=== PATIENT | female | born 1955 | race African-American/Black ===

== ENCOUNTER 2021-06-09 14:23 | Emergency (ER) | payer MEDICARE, SELFPAY ==
--- NOTE | ~2021-06-09 | XR_ITS ---
EXAMINATION: XR chest 2V 06/09/2021 15:41 INDICATION: Congestion and cough. Pneumonia. PROCEDURE: 2 view chest COMPARISON: 09/12/2018 FINDINGS: The lungs are clear. The cardiomediastinal silhouette is within normal limits. There are no pleural effusions. There is no pneumothorax suspected. IMPRESSION: 1: NO ACUTE CARDIOPULMONARY DISEASE. Reviewed, dictated and finalized at location A. PRACTITIONER
--- NOTE | 2021-06-09 14:27 | ED.URI ---
HPI - URI/Sore Throat General Chief Complaint: Upper Respiratory Infection Stated Complaint: cogh/sore throat/uri Time Seen by Provider: 06/09/21 14:26 Source: patient Mode of arrival: ambulatory Limitations: no limitations History of Present Illness HPI Narrative: Ms. Lugo is a 66-year-old female patient presenting to the clinic today with complaints of cough, sore throat, losing voice, fever, and shortness of breath x 3 days. She reports no known Covid exposure. Fever was as high as 101.1F. SPO2 is 98% on room air. Reports shortness of breath with exertion and laying down. She is able to speak in full sentences. Reports coughing is worse when she is lying down. She denies being smoker. Has a productive cough with green phlegm. MD elicited complaint: cough, sore throat and nasal congestion Related Data Home Medications Medication Instructions Recorded Confirmed amlodipine 10 mg DIRECTED 06/09/21 06/09/21 atorvastatin 40 mg DIRECTED 06/09/21 06/09/21 levothyroxine 75 mcg DIRECTED 06/09/21 06/09/21 losartan-hydrochlorothiazide 1 tablet DIRECTED 06/09/21 06/09/21 metformin 500 mg PO DIRECTED 06/09/21 06/09/21 metoprolol succinate 100 mg PO DIRECTED 06/09/21 06/09/21 Allergies Allergy/AdvReac Type Severity Reaction Status Date / Time lisinopril Allergy Unknown SWELLING Verified 12/20/17 07:53 Review of Systems Review of Systems: Pertinent positives per HPI. Patient denies any chills, rash, headache, visual changes, dizziness, chest pain, palpitations, nausea, vomiting, diarrhea, constipation, abdominal pain, or any urinary issues. PMFSH Comments At the time of my signature, I reviewed and agree with the nursing past medical, surgical, social, and family history. There is no relevant family history pertinent to the patient complaint. Exam Narrative: General: Well-developed, well nourished, in no apparent distress Head: Normocephalic, atraumatic Eyes: Pupils equally round and reactive to light bilaterally, EOM intact, sclera and conjunctive clear, no discharge, lids normal Ears: TMs intact and clear, ear canals clear, no drainage, grossly hearing normal. Nose: Nares patent, clear nasal discharge, mild inflammation to left anterior and posterior turbinates, no sinus tenderness. Mouth: Oral pharynx without lesions or masses, good dentition, MMM. Postnasal drip Neck: Supple, trachea midline, no enlargement of anterior or posterior cervical nodes, no thyroid masses or goiter palpable. Cardio: Regular rate and rhythm, s1 and s2 normal, no murmur appreciated. Resp: Lung sounds diminished, no rhonchi, rales, wheezing or rubs. Active wet cough Course Course Emergency Course: Portions of this record may have been created with voice recognition software. Level of Care: Express Care Visit Reevaluation(s) Reevaluation #1: Lung sounds improved however patient is taking shallow breaths to avoid coughing. Patient feels as though she is breathing easier after treatment. Date: 06/09/21 Time: 15:29 Vital Signs Vital signs: Vital Signs Temperature 36.5 C 06/09/21 14:37 Pulse Rate 96 06/09/21 14:37 Respiratory Rate 18 06/09/21 14:37 Blood Pressure 116/65 06/09/21 14:37 Pulse Oximetry 98 06/09/21 14:37 Temperature 36.5 C 06/09/21 14:37 Pulse Rate 95 06/09/21 15:30 Respiratory Rate 20 06/09/21 15:30 Blood Pressure 116/65 06/09/21 14:37 Pulse Oximetry 100 06/09/21 15:30 Vital signs reviewed MDM - URI/Sore Throat MDM Narrative Medical decision making narrative: Rapid Covid testing done in clinic. Covid test is negative. Will give DuoNeb handheld treatment as lung sounds are diminished and complete a 2 view chest x-ray to rule out pneumonia. Chest x-ray positive for potential pneumonia in the lower lung bases as well as some haziness in the posterior cardiac space. Differential Diagnosis Differential diagnosis: Likely upper respiratory infection, sinusitis, viral infe
[2021-06-09 14:37] VITALS: BP 116/65; PULSE 96; RESP 18; TEMP 36.5; O2SAT 98
[2021-06-09] MEDS: IPRATROPIUM BR 0.02% INH SOLN 0.5 MG/2.5 ML VIAL INHALATION (15:11)
[2021-06-09] MEDS: ALBUTEROL SULFATE NEB 2.5 MG/3 ML INH INHALATION (15:11)
[2021-06-09 15:14] VITALS: PULSE 102; RESP 18; O2SAT 97
[2021-06-09 15:30] VITALS: PULSE 95; RESP 20; O2SAT 100
== END 2021-06-09 15:59 | disposition home or self-care (01) ==
PROVIDERS: Emergency Provider Nurse Practitioner Family
DX: J22 Unspecified acute lower respiratory infection (principal); Z20.822 Contact with and (suspected) exposure to COVID-19; E78.00 Pure hypercholesterolemia, unspecified; I10 Essential (primary) hypertension; E05.90 Thyrotoxicosis, unspecified without thyrotoxic crisis or storm; Z86.73 Personal history of transient ischemic attack (TIA), and cerebral infarction without residual deficits
CPT/HCPCS: 71046; 87426; 94640; 99213; C9803; G0463

== ENCOUNTER → 2021-11-06 09:50 | Outpatient (CLI) | payer MEDICARE, SELFPAY ==
--- NOTE | ~2021-11-06 | MM_ITS ---
EXAMINATION: MM screening wally BI w analy HISTORY: Screening TECHNIQUE: Craniocaudal and mediolateral oblique 3-D tomosynthesis images were obtained and synthetic 2-D images were generated. CAD analysis was submitted and interpreted. COMPARISON: No prior mammogram is available for comparison at this institution. BREAST PARENCHYMAL COMPOSITION: Breast composed of scattered areas of fibroglandular density FINDINGS: There are no suspicious masses, calcifications or architectural distortion in the right ciera ast to suggest malignancy. There is a mass in the upper outer quadrant of the left breast. There are benign left breast calcifications. IMPRESSION: 1. Left breast mass, upper outer quadrant. 2. Comparison to previous outside mammograms recommended to assess stability. BI-RADS Category 0: Incomplete: Needs additional imaging evaluation. Reviewed, dictated and finalized at location A.
== END ==
DX: Z12.31 Encounter for screening mammogram for malignant neoplasm of breast (principal); R92.8 Other abnormal and inconclusive findings on diagnostic imaging of breast
CPT/HCPCS: 77063; 77067

== ENCOUNTER 2023-09-06 17:34 | Emergency (ER) | payer OTHER, SELFPAY ==
--- NOTE | 2023-09-06 17:44 | ED.BACK ---
HPI - Back Pain/Injury General Chief Complaint: Back Pain/Injury Stated Complaint: back pain Time Seen by Provider: 09/06/23 17:44 Source: patient Mode of arrival: ambulatory Limitations: no limitations History of Present Illness HPI Narrative: Patient is a 68-year-old female who presents with right low back pain that started the 7th of this month. Instead of getting better as just gotten worse. Pain radiates from right-sided back down lateral side of right leg. Denies any loss of bowel or bladder, numbness, tingling or weakness to right leg. Patient has tried topical creams, Tylenol, ibuprofen with no relief. Related Data Home Medications Medication Instructions Recorded Confirmed amlodipine 10 mg tablet 10 mg DIRECTED 06/09/21 09/06/23 atorvastatin 40 mg tablet 40 mg DIRECTED 06/09/21 09/06/23 levothyroxine 75 mcg tablet 75 mcg DIRECTED 06/09/21 09/06/23 losartan 50 mg-hydrochlorothiazide 1 tablet DIRECTED 06/09/21 09/06/23 12.5 mg tablet metformin 500 mg tablet,extended 500 mg PO DIRECTED 06/09/21 09/06/23 release 24 hr metoprolol succinate 100 mg 100 mg PO DIRECTED 06/09/21 09/06/23 tablet,extended release 24 hr Allergies Allergy/AdvReac Type Severity Reaction Status Date / Time lisinopril Allergy Unknown SWELLING Verified 09/06/23 17:47 Review of Systems Review of Systems: All systems reviewed & are unremarkable except as noted in HPI and below Constitutional: Constitutional: Denies body ache(s), Denies chills, Denies fatigue, Denies fever(s), Denies headache(s), Denies malaise and Denies weakness Eyes: Eyes: Denies blurry vision, Denies irritation and Denies loss of vision ENT: Denies otalgia, Denies headache(s), Denies nasal discharge, Denies sinus pain and Denies sore throat Cardiovascular: Cardiovascular: Denies chest pain, Denies irregular heart rhythm and Denies dyspnea Respiratory: Respiratory: Denies dyspnea Gastrointestinal: Gastrointestinal: Denies abdominal pain, Denies melena, Denies hematochezia, Denies diarrhea, Denies nausea and Denies vomiting Musculoskeletal: Musculoskeletal: Reports back pain, Denies myalgias and Denies arthralgias Integumentary/Breasts: Skin/Breast: Denies pruritus and Denies rash Neurologic: Denies headache(s), Denies loss of vision and Denies weakness Psychiatric: Psychiatric: Reports no additional psychiatric complaints Endocrine: Endocrine: Denies fatigue PMFSH Comments At time of signature, agree with nursing past medical, surgical, social and family history. There is no relevant family history pertinent to the presenting complaint. Exam Const: General: cooperative, healthy appearing, comfortable, no acute distress and well nourished Nutritional Appearance: well nourished Orientation/consciousness: patient oriented x3 Limitations: no limitations HENMT: Head: normal to inspection, normocephalic and atraumatic Ears: hearing grossly normal bilaterally and external ears normal Face/Nose/Sinus: Normal external nose present, normal facial exam and face symmetric Face and sinus: normal facial exam and face symmetric Mouth: Yes lip normal Eyes: General: appearance normal, both eyes and all related structures Alignment and Position: alignment normal and position normal Periorbital: periorbital findings normal Eyelids: eyelids normal Pupils: Equal, round and reactive pupils present EOM: EOMs intact bilaterally Neck: Neck: normal visual inspection, full ROM and supple Chest: Chest palpation & inspection: normal inspection of the chest Resp: Effort & Inspection: normal respiratory effort and able to speak in complete sentences Auscultation: clear to auscultation bilaterally Cardio: Rate: regular rate Rhythm: regular rhythm Heart sounds: S1 normal heart sound present and S2 normal heart sound present GI: Inspection: normal to inspection Back/Spine/Pelvis: Thoracic/Lumbar Spine: paraspinal muscle tenderness on the right in the lo
[2023-09-06 17:54] VITALS: BP 138/59; PULSE 62; RESP 16; TEMP 36.7; O2SAT 99
== END 2023-09-06 18:15 | disposition home or self-care (01) ==
PROVIDERS: Emergency Provider Nurse Practitioner Family
DX: M54.31 Sciatica, right side (principal); E78.00 Pure hypercholesterolemia, unspecified; I10 Essential (primary) hypertension; E05.90 Thyrotoxicosis, unspecified without thyrotoxic crisis or storm; Z86.73 Personal history of transient ischemic attack (TIA), and cerebral infarction without residual deficits
CPT/HCPCS: 99213; G0463